=== PATIENT | male | born 1980 | race Two or more races ===

== ENCOUNTER 2019-06-05 20:06 | Emergency (ER) | payer OTHER ==
[~2019-06-05] VITALS: Ht 185.4 cm; Wt 106.6 kg
[2019-06-05 20:45] VITALS: BP 135/84
[2019-06-05] MEDS ORDERED: IBUPROFEN 600 MG TABLET ONE (21:14)
[2019-06-05] MEDS ORDERED: IBUPROFEN 600 MG TABLET PO ONE (21:30)
== END 2019-06-05 23:15 | disposition home or self-care (01) ==
LOC: ED 21:06
DX: L02.612 Cutaneous abscess of left foot (principal)
CPT/HCPCS: 10060; 99283